=== PATIENT | female | born 1980 | race Hispanic/Latino ===

== ENCOUNTER → 2017-08-22 | Outpatient (CLI) | payer OTHER ==
--- NOTE | 2017-08-22 09:47 | Diagnostic Imaging Report ---
PROCEDURE:SHOULDER RIGHT COMPLETE TECHNIQUE:Internal and external rotation AP views right shoulder INDICATION:Right shoulder pain COMPARISON:None. FINDINGS: The right shoulder and image regional skeleton are intact and in anatomic alignment. Joint spaces are normal. Regional skeleton intact. Normal soft tissues. CONCLUSION: Normal right shoulder series. Dictated by: Domingo Degroot M.D. on 08/22/2017 at 9:47 Electronically approved by: Domingo Degroot M.D. on 08/22/2017 at 9:47
== END ==
LOC: RAD 08:55
PROVIDERS: ATTEND Internal Medicine
DX: M25.511 Pain in right shoulder (principal)